=== PATIENT | female | born 1950 | race Caucasian/White ===

== ENCOUNTER 2017-02-10 14:03 | Emergency (ER) | payer SELFPAY ==
[~2017-02-10] VITALS: Ht 160 cm; Wt 78.9 kg
[2017-02-10 14:07] VITALS: Ht 160 cm; Wt 78.9 kg
--- NOTE | 2017-02-10 14:51 | ERD ---
ER Documentation Chief Complaint Date/Time DATE: 02/10/17 Chief Complaint Request for medical refills HPI The patient is a 66-year-old female who presents to the Emergency Department requesting medication refills of her Novolin-N, Metformin, Levothyroxine and Amlodipine. The patient reports that she has an upcoming appointment with her primary medical provider, but used her last dose of Novolin-N last night. As she is due for another dose this evening, she decided to present to the ED for medication refills until she can be seen by her doctor. She denies any current complaints. She denies headache, dizziness, weakness, sweats, fevers, chills, vomiting, chest pain, palpitations, shortness of breath, abdominal pain, back pain, or any other complaints at this time. Patient's medication: Metformin 1000 mg BID Novolin-N 46 units QPM Amlodipine 5 mg PO QAM Levothyroxine 100 mcg QAM ROS All systems reviewed and are negative except as per history of present illness. Medications Home Meds Active Scripts Levothyroxine Sodium* (Levothyroxine Sodium*) 100 Mcg Tablet, 100 MCG PO BEFORE BREAKFAST, #30 TAB Prov:SHAYNE ROBLERO PA-C 02/10/17 Amlodipine Besylate* (Amlodipine Besylate*) 5 Mg Tablet, 5 MG PO QAM, #30 TAB Prov:SHAYNE ROBLERO PA-C 02/10/17 Insulin Human Nph (Novolin-N) 100 Units/Ml Susp, 46 UNITS SQ QHS, #1 VIAL Prov:SHAYNE ROBLERO PA-C 02/10/17 Metformin* (Glucophage*) 1,000 Mg Tablet, 1000 MG PO BID, #30 TAB Prov:SHAYNE ROBLERO PA-C 02/10/17 Allergies Allergies: Coded Allergies: No Known Allergy (Unverified , 02/10/17) PMhx/Soc History of Surgery: Yes (thyroidectomy) Hx Cardiac Disorders: Yes (hypertension) Hx Miscellaneous Medical Probl: Yes (diabetes mellitus, thyroid problems) Hx Alcohol Use: No Hx Substance Use: No Hx Tobacco Use: No Smoking Status: Never smoker Physical Exam Vitals Vital Signs Date Time Temp Pulse Resp B/P Pulse Ox O2 Delivery O2 Flow Rate FiO2 02/10/17 14:07 98.4 56 18 157/57 99 Physical Exam GENERAL: Well-developed, well-nourished, in no acute distress HEENT: Head is normocephalic, atraumatic. No scleral pallor or icterus. Conjunctiva pink. Moist mucous membranes. NECK: Supple. RESPIRATORY: Lungs are clear to auscultation bilaterally. CARDIOVASCULAR: Regular rate and rhythm. S1 and S2 normal. GASTROINTESTINAL: Abdomen is soft, nontender, and nondistended. EXTREMITIES: No clubbing, cyanosis, or edema. NEUROLOGIC: The patient is alert, awake, and oriented x 3. INTEGUMENT: Skin is clean, dry and intact. PSYCHIATRIC: Appropriate; Cooperative. Procedures/MDM This is a 66-year-old female presenting to the Emergency Department requesting a medication refill of her Metformin, Novolin-N, Levothyroxine and Amlodipine. Patient has no acute medical complaints or concerns. She has taken all medications as directed, and has not yet missed any doses. She is in stable condition with stable vital signs, and no signs of shortness of breath, chest pain, palpitations, weakness, focal deficits, fever, respiratory distress or any other emergent medical conditions. At this time, the patient will be discharged home with a prescription for her Metformin, Amlodipine, Novolin-N and Levothyroxine and given strict return precautions for signs of deteriorating or worsening condition. She is advised to follow up with her primary medical provider for reevaluation and further management within 2-3 days or return to the ER sooner if symptoms worsen. At the time of discharge, all questions were answered. Departure Diagnosis: Primary Impression: Encounter for medication refill Additional Impressions: History of diabetes mellitus History of hypertension History of hypothyroidism Condition: Stable Patient Instructions: DIABETES, General Info, Taking Medicine Safely, Using Injected Insulin Additional Instructions: Llame al doctor MAANA y madison jyoti WINTER PARA DENTRO DE 1-2 CASTRO.Dgale a la secretaria que nosotros le instruimos hacer esta winter.Avise o llame si dewey condicin se empeora antes de la winter. Regresa aqui si peor o no mejor. SHAYNE ROBLERO PA-C Feb 10, 2017 14:51
[2017-02-10] MEDS ORDERED: MTF1000T PO (14:52)
[2017-02-10] MEDS ORDERED: NPH SQ (14:53)
[2017-02-10] MEDS ORDERED: AMLO-145 PO (14:53)
[2017-02-10] MEDS ORDERED: LEVO100T87 PO (14:54)
== END 2017-02-10 15:20 | disposition left against medical advice (07) ==
LOC: FTE 14:03
DX: Z76.0 Encounter for issue of repeat prescription (principal); E11.9 Type 2 diabetes mellitus without complications; I10 Essential (primary) hypertension; E03.9 Hypothyroidism, unspecified
CPT/HCPCS: 99281

== ENCOUNTER 2018-04-15 15:47 | Emergency (ER) | END 2018-04-15 18:47 | disposition home or self-care (01) ==